=== PATIENT | male | born 2000 | race Caucasian/White ===

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

== ENCOUNTER 2021-01-01 01:58 | Emergency (ER) | payer OTHER ==
[~2021-01-01] VITALS: Ht 188 cm; Wt 68.2 kg
[2021-01-01 02:25] VITALS: BP 138/95
== END 2021-01-01 03:12 | disposition home or self-care (01) ==
LOC: ER 02:01
DX: R55 Syncope and collapse (principal); R51.9 Headache, unspecified; R05 Cough; J02.9 Acute pharyngitis, unspecified; R09.81 Nasal congestion; R11.0 Nausea; R61 Generalized hyperhidrosis
CPT/HCPCS: 93005; 99283